=== PATIENT | female | born 1990 | race Hispanic/Latino ===

== ENCOUNTER 2017-11-21 15:30 | Emergency (ER) | payer MEDICAID ==
[~2017-11-21 15:30] MED LIST: ACET1TAB12 PO; PREN-64 PO
[2017-11-21 16:13] LABS: APPEARANCE,URINE Clear (CLEAR); BILIRUBIN,URINE Negative (NEGATIVE); COLOR,URINE Yellow (YELLOW); GLUCOSE, URINE (UA) Negative (NEGATIVE); HCG,QUAL RESULT NEGATIVE (NEGATIVE); KETONES,URINE Negative (NEGATIVE); LEUKOCYTE ESTERASE ,URINE Negative (NEGATIVE); NITRATE,URINE Negative (NEGATIVE); OCCULT BLOOD,URINE Trace (NEGATIVE); PROTEIN,URINE Negative (NEGATIVE); UROBILINOGEN,URINE 0.2 mg/dL (0.2-1.0)
[2017-11-21 16:21] LABS: BACTERIA,URINE None Seen /HPF (None Seen); RBC,URINE None Seen /HPF (0-1); WBC,URINE None Seen /HPF (0-1)
[2017-11-21 16:28] LABS: RAPID GROUP A STREP NEGATIVE (NEGATIVE)
== END 2017-11-21 16:45 | disposition home or self-care (01) ==
LOC: EDH 15:30
DX: J02.9 Acute pharyngitis, unspecified (principal); Z88.0 Allergy status to penicillin; Z88.6 Allergy status to analgesic agent; Z91.041 Radiographic dye allergy status
CPT/HCPCS: 81001; 81025; 87804; 87880

== ENCOUNTER 2018-03-01 15:29 | Emergency (ER) | payer MEDICAID ==
[2018-03-01 16:16] LABS: APPEARANCE,URINE Clear (CLEAR); BILIRUBIN,URINE Negative (NEGATIVE); COLOR,URINE Yellow (YELLOW); GLUCOSE, URINE (UA) Negative (NEGATIVE); KETONES,URINE Negative (NEGATIVE); LEUKOCYTE ESTERASE ,URINE Negative (NEGATIVE); NITRATE,URINE Negative (NEGATIVE); OCCULT BLOOD,URINE Nonhemolyzed Trace (NEGATIVE); PROTEIN,URINE Negative (NEGATIVE); UROBILINOGEN,URINE 0.2 mg/dL (0.2-1.0)
[2018-03-01 16:20] LABS: HCG,QUAL RESULT NEGATIVE (NEGATIVE)
[2018-03-01 16:32] LABS: BACTERIA,URINE Few /HPF (None Seen); RBC,URINE 0-1 /HPF (0-1); SQUAMOUS EPITHELIAL CELL,UR Few /HPF (0-2); WBC,URINE 0-1 /HPF (0-1); YEAST,URINE BUDDING Few /HPF (None Seen)
[2018-03-01 16:33] LABS: MUCUS,URINE Rare LPF (None Seen)
[2018-03-01] MEDS ORDERED: MAGNESIUM CITRATE 296 ML SOLUTION ONE (17:11)
[2018-03-01] MEDS ORDERED: BISACODYL 10 MG SUPP.RECT RC ONE (17:54)
== END 2018-03-01 19:31 | disposition home or self-care (01) ==
LOC: EDH 15:29
DX: K59.00 Constipation, unspecified (principal); F90.9 Attention-deficit hyperactivity disorder, unspecified type; Z88.0 Allergy status to penicillin; Z88.8 Allergy status to other drugs, medicaments and biological substances; Z98.51 Tubal ligation status; Z98.890 Other specified postprocedural states
CPT/HCPCS: 74021; 81001; 81025

== ENCOUNTER 2018-08-12 14:34 | Emergency (ER) | payer MEDICAID ==
[2018-08-12] MEDS ORDERED: ONDANSETRON ODT 4 MG TAB ONE (14:59)
[2018-08-12 15:09] LABS: APPEARANCE,URINE CLEAR (CLEAR); BILIRUBIN,URINE NEGATIVE (NEGATIVE); COLOR,URINE YELLOW (YELLOW); GLUCOSE, URINE (UA) NEGATIVE (NEGATIVE); KETONES,URINE NEGATIVE (NEGATIVE); LEUKOCYTE ESTERASE ,URINE NEGATIVE (NEGATIVE); NITRATE,URINE NEGATIVE (NEGATIVE); OCCULT BLOOD,URINE SMALL (NEGATIVE); PH,URINE 6.5 (5.0-8.0); PROTEIN,URINE >=300 (NEGATIVE); UROBILINOGEN,URINE 0.2 mg/dL (0.2-1.0)
[2018-08-12 15:11] LABS: HCG,QUAL RESULT NEGATIVE (NEGATIVE)
[2018-08-12 15:24] LABS: BACTERIA,URINE Rare /HPF (None Seen); MUCUS,URINE Rare LPF (None Seen); RBC,URINE 0-1 /HPF (0-1); SQUAMOUS EPITHELIAL CELL,UR Rare /HPF (0-2); WBC,URINE 0-1 /HPF (0-1)
== END 2018-08-12 15:40 | disposition home or self-care (01) ==
LOC: EDH 14:34
CPT/HCPCS: 81001; 81025

== ENCOUNTER 2019-03-14 | Emergency (ER) | payer MEDICAID ==
[2019-03-14] MEDS ORDERED: ONDANSETRON HCL 4 MG/2 ML VIAL ONE (00:25)
[2019-03-14] MEDS ORDERED: SODIUM CHLORIDE 0.9% 1000ML 1,000 ML IV ONE (00:25)
[2019-03-14 00:51] LABS: BASOPHILS % (AUTO) 0.5 % (0.0-5.0); EOSINOPHILS % (AUTO) 2.6 % (0.0-8.0); LYMPHOCYTES % (AUTO) 43.2 % (21.0-51.0); MEAN CORPUSCULAR HEMOGLOBIN 26.4 pg (27.0-33.0); MEAN CORPUSCULAR HGB CONC 32.5 g/dL (32.0-36.0); MEAN CORPUSCULAR VOLUME 81.2 fL (79-99); MONOCYTES % (AUTO) 5.3 % (3.0-13.0); NEUTROPHILS % (AUTO) 48.4 % (40.0-77.0); PLATELET COUNT (AUTO) 215 K/uL (130-400); RED BLOOD CELL COUNT(AUTO) 4.44 MIL/uL (4.00-5.50); RED CELL DISTRIBUTION WIDTH 16.6 % (11.0-15.5)
[2019-03-14 00:53] LABS: APPEARANCE,URINE CLEAR (CLEAR); BILIRUBIN,URINE NEGATIVE (NEGATIVE); COLOR,URINE YELLOW (YELLOW); GLUCOSE, URINE (UA) NEGATIVE (NEGATIVE); KETONES,URINE 5 mg/dL (NEGATIVE); LEUKOCYTE ESTERASE ,URINE NEGATIVE (NEGATIVE); NITRATE,URINE NEGATIVE (NEGATIVE); OCCULT BLOOD,URINE SMALL (NEGATIVE); PROTEIN,URINE NEGATIVE (NEGATIVE); UROBILINOGEN,URINE 0.2 mg/dL (0.2-1.0)
[2019-03-14 00:54] LABS: HCG,QUAL RESULT NEGATIVE (NEGATIVE)
[2019-03-14 01:03] LABS: CARBON DIOXIDE 28 mmol/L (21-32); CHLORIDE 107 mmol/L (101-111); CREATININE 1.5 mg/dL (0.5-1.5); GLOMERULAR FILTR. RATE CALC 44 mL/min (>60); GLUCOSE,RANDOM 85 mg/dL (70-105); POTASSIUM 3.7 mmol/L (3.5-5.1); SODIUM SERUM 142 mmol/L (136-145); UREA NITROGEN, BLOOD 22 mg/dL (7-18)
[2019-03-14 01:07] LABS: INR 0.95 (0.85-1.15); PARTIAL THROMBOPLASTIN TIME 27.9 SEC (26.3-35.5)
[2019-03-14 01:08] LABS: ALANINE AMINOTRANSFERASE 23 U/L (12-78); ALBUMIN 3.4 g/dL (3.5-5.0); ASPARTATE AMINOTRANSFERASE 19 U/L (10-37); BILIRUBIN,DIRECT < 0.1 mg/dL (0.0-0.3); BILIRUBIN,TOTAL 0.1 mg/dL (0.2-1.0); LIPASE 187 U/L (114-286); TOTAL PROTEIN, SERUM 6.5 g/dL (6.0-8.3)
[2019-03-14 01:36] LABS: AMPHET/METH SCREEN,URINE NEGATIVE (NEGATIVE); BARBITURATE SCREEN, URINE NEGATIVE (NEGATIVE); BENZODIAZEPINES SCREEN,URINE NEGATIVE (NEGATIVE); CANNABINOID SCREEN,URINE POSITIVE (NEGATIVE); COCAINE SCREEN,URINE NEGATIVE (NEGATIVE); OPIATE SCREEN,URINE NEGATIVE (NEGATIVE); PHENCYCLIDINE SCREEN,URINE NEGATIVE (NEGATIVE)
[2019-03-14 01:40] LABS: BACTERIA,URINE None Seen /HPF (None Seen); WBC,URINE None Seen /HPF (0-1)
== END 2019-03-14 01:59 | disposition home or self-care (01) ==
LOC: EDH
DX: R10.31 Right lower quadrant pain (principal); F12.10 Cannabis abuse, uncomplicated; F90.9 Attention-deficit hyperactivity disorder, unspecified type; Z88.0 Allergy status to penicillin; Z88.6 Allergy status to analgesic agent; Z98.890 Other specified postprocedural states
CPT/HCPCS: 36415; 80048; 80076; 80305; 81001; 81025; 83690; 85025; 85610; 85730; 96374; 99284; J2405; J7030

== ENCOUNTER 2020-09-16 10:16 | Emergency (ER) | payer MEDICAID, OTHER | END 2020-09-16 10:55 | disposition home or self-care (01) | LOC: EDH 10:16 | DX: L04.9 Acute lymphadenitis, unspecified (principal); F90.9 Attention-deficit hyperactivity disorder, unspecified type; Z88.0 Allergy status to penicillin; Z88.6 Allergy status to analgesic agent; Z72.0 Tobacco use; Z98.890 Other specified postprocedural states ==

== ENCOUNTER 2024-10-30 19:54 | Emergency (ER) | payer MEDICAID ==
[~2024-10-30] VITALS: Ht 154.9 cm; Wt 70.3 kg
--- NOTE | 2024-10-30 19:55 | NUR ---
UA CUP PROVIDED
[2024-10-30 20:35] VITALS: BP 130/75; PULSE 80; RESP 16; TEMP 98.1; O2SAT 98
--- NOTE | 2024-10-30 20:40 | NUR ---
pt reports dental pain r face
[2024-10-30] MEDS ORDERED: CLIN-141 PO (20:42)
[2024-10-30] MEDS: dexaMETHasone SOD PHOSPHATE 4 MG/ML 1ML VIAL IM ONE (20:43)
--- NOTE | 2024-10-30 20:43 | ERN ---
General Chief Complaint: Tooth Ache/Pain Stated Complaint: RT TOOTHACHE Time Seen by MD: 19:56 Time Seen by Midlevel: 19:56 Source: patient History of Present Illness Initial Comments Patient is a 33-year-old female presenting to the emergency department with right upper molar pain that has been ongoing for the last couple of days but worsened today. Patient was seeking pain control at this time. Denies any fever, chills, or any other symptoms at this time. Allergies: Coded Allergies: Penicillins (Verified Allergy, Unknown, 04/17/15) ibuprofen (Unverified Allergy, Unknown, 03/14/19) Home Meds Reported Medications Acetaminophen with Codeine (Tylenol with Codeine #3 Tablet) 1 Each Tablet, 1 TAB PO HS for PAIN, TAB 04/18/15 Vit #76/Iron,Carb/FA (Prenatabs Rx Tablet) 1 Each Tablet, 1 EACH PO DAILY, TAB 04/18/15 Past Medical History Past Medical History: No Pertinent History Past Surgical History: Other, Surgical History Other: HERNIA Female( History) LMP: Oct 23, 2024 ROS Dictation CONSTITUTIONAL: Negative except for HPI HEAD/FACE: Negative except for HPI EENT: Negative except for HPI RESPIRATORY: Negative except for HPI GASTROINTESTINAL/ABDOMINAL: Negative except for HPI GENITOURINARY: Negative except for HPI MUSCULOSKELETAL: Negative except for HPI INTEGUMENTARY: Negative except for HPI NEUROLOGICAL/PSYCH: Negative except for HPI HEMATOLOGIC/LYMPHATIC: Negative except for HPI All Systems Negative, Except as noted above. 13 point review of systems assessed and all negative except for above. Physical Exam Physical Exam Dictation PHYSICAL EXAM: GENERAL: alert,, awake oriented x 3 HEENT: Dental abscess to the right upper molar NECK: Supple, no JVD, trachea midline LUNGS: Clear breath sounds bilaterally. No wheezes HEART: Regular rate and rhythm. Normal S1 and S2, without murmurs ABD: Abdomen soft, nontender. Bowel sounds present EXT: No clubbing or cyanosis, NEURO: Alert and oriented to person, follows commands MDM MDM: Differential diagnosis: Dental caries, dental abscess, poor oral hygiene There are no social concerns with this patient. Prescription drug management Prescriptions will include: Clindamycin Medical management and examination interpretation discussions were had by me with other qualified healthcare professionals as indicated for the patient's care. ED Course Orders Procedure Category Date Status Time Morphine 2mg Syg PHA 10/30/24 Transmitted (Morphine 2mg Syg) 21:00 Dexamethasone 4mg/Ml PHA 10/30/24 Transmitted 1ml Vial (Dexametha 21:00 Vital Signs Date Time Temp Pulse Resp B/P (MAP) Pulse Ox O2 Delivery O2 Flow Rate FiO2 10/30/24 20:35 98.1 80 16 130/75 98 Room Air* 0 21 10/30/24 19:55 97.9 80 18 131/78 100 Room Air DX & DISP Disposition: Discharge Departure Impression: Primary Impression: Dental abscess Condition: Stable Scripts Clindamycin HCl (Clindamycin HCl) 300 Mg Capsule 1 CAP PO BID for 7 Days, #14 CAP 0 Refills Prov: ALLISON HALL 10/30/24 Additional Instructions: Your physical examination is consistent with what appears to be the start of an infection to your right upper tooth. Have given you a prescription for oral antibiotics. You will need to follow up with a dentist for outpatient evaluation. Referrals: ILENE NAVA MD (PCP) Time of Disposition: 20:41 I have reviewed the case, and I agree with, Diagnosis and Plan I performed the substantive portion of the visit. I have reviewed and p ersonally made and approve the management plan that is documented in the note by myself or the LILY. I acknowledge for responsibility for the patient's management plan. ALLISON HALL Oct 30, 2024 20:43
[2024-10-30] MEDS: morPHINE 2 MG SYG IM ONE (20:44)
== END 2024-10-30 20:52 | disposition home or self-care (01) ==
LOC: EDH 19:54
DX: K04.7 Periapical abscess without sinus (principal); Z88.0 Allergy status to penicillin; Z88.6 Allergy status to analgesic agent
CPT/HCPCS: 99284; 96372 ×2; J1100; J2270

== ENCOUNTER 2025-07-08 10:07 | Emergency (ER) | payer MEDICAID ==
[~2025-07-08 10:07] MED LIST changes: +CLIN-141 PO; +DOXY100C5 PO; +PRED10TA23 PO
[2025-07-08 10:41] LABS: APPEARANCE,URINE CLEAR (CLEAR); GLUCOSE, URINE (UA) NEGATIVE (NEGATIVE); LEUKOCYTE ESTERASE ,URINE 250 Leu/uL (NEGATIVE); NITRATE,URINE NEGATIVE (NEGATIVE); OCCULT BLOOD,URINE MODERATE (NEGATIVE)
[2025-07-08 10:45] LABS: ADD UA MICROSCOPIC YES
[2025-07-08 10:46] LABS: SQUAMOUS EPITHELIAL CELL,UR FEW /HPF (0-2)
[2025-07-08 10:49] LABS: HCG,QUALITATIVE URINE NEGATIVE (NEGATIVE)
[2025-07-08] MEDS ORDERED: MACR100 PO (11:22)
--- NOTE | 2025-07-08 11:23 | ERN ---
General Chief Complaint: Urinary Frequency Stated Complaint: URINARY FREQUENCY AND POSSIBLE YEAST INFECTION Time Seen by MD: 10:09 Time Seen by Midlevel: 10:09 Source: patient History of Present Illness Initial Comments Patient is a 34-year-old female presenting to the emergency department for evaluation of increased urinary frequency. She has also noticed an increase in vaginal discharge described as clear. She states her vaginal discharge may be a yeast infection. Patient is unsure if she is at this time. Denies any other symptoms. Allergies: Coded Allergies: Penicillins (Verified Allergy, Unknown, 04/17/15) ibuprofen (Unverified Allergy, Unknown, 03/14/19) Home Meds Active Scripts Prednisone (Prednisone) 10 Mg Tab.ds.pk, 1 TAB PO DAILY for 5 Days, #21 TAB 0 Refills Prov:EMILY RAMÍREZ MD 12/27/24 Doxycycline Hyclate (Doxycycline Hyclate) 100 Mg Capsule, 1 CAP PO BID for 10 Days, #20 CAP 0 Refills Prov:EMILY RAMÍREZ MD 12/27/24 Clindamycin HCl (Clindamycin HCl) 300 Mg Capsule, 1 CAP PO BID for 7 Days, #14 CAP 0 Refills Prov:ALLISON HALL PAC 10/30/24 Reported Medications Acetaminophen with Codeine (Tylenol with Codeine #3 Tablet) 1 Each Tablet, 1 TAB PO HS for PAIN, TAB 04/18/15 Vit #76/Iron,Carb/FA (Prenatabs Rx Tablet) 1 Each Tablet, 1 EACH PO DAILY, TAB 04/18/15 Past Medical History Past Medical History: No Pertinent History, Other Past Surgical History: Other, Surgical History Other: HERNIA ROS Dictation CONSTITUTIONAL: Negative except for HPI HEAD/FACE: Negative except for HPI EENT: Negative except for HPI RESPIRATORY: Negative except for HPI GASTROINTESTINAL/ABDOMINAL: Negative except for HPI GENITOURINARY: Negative except for HPI MUSCULOSKELETAL: Negative except for HPI INTEGUMENTARY: Negative except for HPI NEUROLOGICAL/PSYCH: Negative except for HPI HEMATOLOGIC/LYMPHATIC: Negative except for HPI All Systems Negative, Except as noted above. 13 point review of systems assessed and all negative except for above. Physical Exam Physical Exam Dictation Vital Signs reviewed General Appearance: Alert, oriented x 3, no acute distress, well developed, nou rished. Head and Face: non-traumatic. Eyes: PERRL, pink conjunctivas, eyelid no trauma, anterior chamber with arcus senilis. Ears: Pinnas intact and no signs of trauma or erythema ear canals clear and no discharge TM no erythema Nose: No discharge, no bleeding. Oropharynx: Mouth normal, tongue pink, pharynx clear,no erythema, tonsils no exudates, no abscesses noted, mucous me mbrane moist Neck: Supple, non-tender, no thyromegaly, no masses, no JVD, no bruits Breast:Deferred Chest:No tenderness, no crepitus, no paradoxical movement, no retractions Lungs:Clear, well-ventilated, symmetric, no rales, no wheezing, no rhonchi, no stridor, good breath sounds bilaterally Heart: Regular rate, regular rhythm, no murmur, no gallops Vascular: no peripheral edema, Abdomen: Soft, positive bowel sounds, nondistended, no guarding, nontender, no rebound, no masses no hepatomegaly, no splenomegaly, no Anaya's sign, no hernias. Rectal: Deferred Genital: Deferred Neurological: Normal speech, motor function intact, sensory function intact Musculoskeletal: Neck nontender, full range of motion, back nontender, full range of motion, Extremities: nontender, full range of motion Skin: Color pink, dry, no turgor, no rash, no lacerations, no abrasions, no contusions. Lymphatic: Deferred Results Laboratory and Microbiology Lab and Micro Result Laboratory Tests Test 07/08/25 10:23 Urine Color YELLOW (YELLOW) Urine Appearance CLEAR (CLEAR) Urine pH 5.0 (5.0-8.0) Urine Specific Plummer 1.029 (1.001-1.031) Urine Protein 10 mg/dL (NEGATIVE) H Urine Glucose (UA) NEGATIVE mg/dL (NEGATIVE) Urine Ketones NEGATIVE mg/dL (NEGATIVE) Urine Occult Blood MODERATE (NEGATIVE) H Urine Nitrate NEGATIVE (NEGATIVE) Urine Bilirubin NEGATIVE mg/dL (NEGATIVE) Urine Urobilinogen 0.2 mg/dL (0.2-1.0) Urine Leukocyte Esterase 250 Sherrill/uL (NEGATIVE) H Urine RBC 2-5 /HPF (0-1) H Urine WBC 6-10 /HPF (0-1) H Urine Squamous Epithelial Cells FEW /HPF (0-2) Urine Amorphous Crystals (Auto) Moderate /LPF (None Seen) H Urine Bacteria None /HPF (None Seen) Urine HCG, Qualitative NEGATIVE (NEGATIVE) Labs Reviewed?: Yes MDM MDM: Differential diagnosis: Urinary tract infection, yeast infection, pyelonephritis There are no social concerns with this patient. Prescription drug management Prescriptions will include: Macrobid Medical management and examination interpretation discussions were had by me with other qualified healthcare professionals as indicated for the patient's care. ED Course Orders Procedure Category Date Status Time Urinalysis Profile LAB 07/08/25 Complete 10:12 ,Urine Test LAB 07/08/25 Complete 10:12 Culture Urine MARIA EUGENIA 07/08/25 In Process 10:45 Fluconazole 100 Mg PHA 07/08/25 Transmitted Tab (Diflucan 100 Mg 11:30 DX & DISP Disposition: Discharge Departure Impression: Primary Impression: Urinary tract infection Condition: Stable Scripts Nitrofurantoin/Nitrofuran Mac (Macrobid) 100 Mg Cap 1 CAP PO BID for 5 Days, #10 CAP 0 Refills Prov: ALLISON HALL PAC 07/08/25 Additional Instructions: Your urinalysis today shows evidence of infection. Your test was negative. Given that there was a concern for a yeast infection you were treated with a one time dose of fluconazole. I have sent you home with a prescription for oral antibiotics. Please take your antibiotics as prescribed. Follow up with your primary care doctor for further evaluation. Referrals: ILENE NAVA MD (PCP) Time of Disposition: 11:22 I have reviewed the case, and I agree with, Diagnosis and Plan I performed the substantive portion of the visit. I have reviewed and personally made and approve the management plan that is documented in the note by myself or the LILY. I acknowledge for responsibility for the patient's management plan. ALLISON HALL PAC Jul 08, 2025 11:23
== END 2025-07-08 11:36 | disposition home or self-care (01) ==
LOC: EDH 10:07
DX: N39.0 Urinary tract infection, site not specified (principal); Z79.52 Long term (current) use of systemic steroids; Z79.891 Long term (current) use of opiate analgesic; Z88.0 Allergy status to penicillin; Z88.6 Allergy status to analgesic agent
CPT/HCPCS: 81001; 81025; 87086; 99283